=== PATIENT | male | born 1960 | race Caucasian/White ===

== ENCOUNTER 2017-12-21 10:01 | Outpatient (CLI) | payer BC ==
--- NOTE | 2017-12-21 13:06 | MRI ---
CERVICAL SPINE MRI WITHOUT CONTRAST: COMPARISON: 03/15/15. HISTORY: Cervical disk degeneration. The patient injured neck 2 years ago. TECHNIQUE: Cervical spine MRI is performed without intravenous Gadolinium administration. Multisequential, mult iplanar imaging is performed. FINDINGS: Appropriate T1 marrow signal intensity of the cervical vertebrae. Cervical spine vertebral body heig ht is maintained. There is no fracture. No significant STIR hyperintensity to suggest vertebral bod y edema or ligamentous injury. Visualized brain parenchyma, cervicomedullary junction, cervical cord, and the upper thoracic cord olya ve a normal size and signal intensity. C2-C3: There is a central disk-osteophyte complex that abuts the thecal sac. No significant central canal stenosis. Neural foramen are patent. C3-C4: Central disk-osteophyte complex abuts the thecal sac. Ventral CSF signal intensity is efface d. There is minimal mass effect upon the cervical cord, without T2 hyperintensity of the cord. Mild central canal stenosis. Right facet hypertrophy. Mild right foraminal narrowing. Minimal left for aminal narrowing. C4-C5: Moderate disk-osteophyte complex abuts the thecal sac. There is no significant central canal stenosis. Neural foramen are patent. C5-C6: No significant disk-osteophyte complex. No significant central canal stenosis. Neural jac en are patent. C6-C7: Central disk-osteophyte complex abuts the thecal sac. No significant central canal stenosis. Neural foramina are patent. C7-T1: No significant disk-osteophyte complex. No significant central canal stenosis or foraminal n arrowing. IMPRESSION: Degenerative change of the cervical spine as above. Nevertheless, there is no significant central ca nal stenosis or neural foraminal narrowing. Disk material does abut the ventral CSF space at C3-C4. No significant mass effect upon the cervical cord. The degree of central canal stenosis has not sig nificant progressed when compared to the previous exam. POS: [facility]
== END 2017-12-21 10:02 | disposition home or self-care (01) ==
LOC: SCSMRI 10:01
PROVIDERS: ATTEND Neurological Surgery
DX: M50.90 Cervical disc disorder, unspecified, unspecified cervical region (principal); M47.892 Other spondylosis, cervical region; M48.02 Spinal stenosis, cervical region
CPT/HCPCS: 72141